=== PATIENT | male | born 1945 | race Caucasian/White ===

== ENCOUNTER 2017-07-08 03:02 | Emergency (ER) | payer MEDICARE, MEDICAID ==
[~2017-07-08] VITALS: Ht 175.3 cm; Wt 98.4 kg
--- NOTE | 2017-07-08 03:02 | NUR ---
to bed 3 bib c/o occipital scalp laceration s/p trip and fall. pt denies ko. pt aaox4 no acute distress noted, resp even and unlabored. pt aaox4 no acute distress noted, resp even and labored. pupils perrl, pt able to move all extremities well with bilateral equal picker packer. skin warm nondiaphoretic. er md at bedside to eval pt with orders received. will carry out orders.
--- NOTE | 2017-07-08 03:20 | NUR ---
PT TAKEN TO CT.
--- NOTE | 2017-07-08 03:33 | NUR ---
pt back from radiology. pending dt head result.
[2017-07-08] MEDS ORDERED: GELATIN SPONGE,ABSORBABLE 1 SPONGE SPONGE TP ONE ×2 (04:22→04:30)
--- NOTE | 2017-07-08 04:26 | NUR ---
er md at bedside for scalp laceration repair.
[2017-07-08] MEDS ORDERED: LIDOCAINE 0.5%-EPI 1:200,000 50 ML VIAL ONE (04:27)
[2017-07-08] MEDS ORDERED: LIDOCAINE 1%-EPI 1:100,000 50 ML VIAL IJ ONE (04:30)
--- NOTE | 2017-07-08 04:43 | NUR ---
scalp laceratio repair done. pt tolerated procedure well. pending disposition.
--- NOTE | 2017-07-08 04:44 | NUR ---
awaiting head ct result.
--- NOTE | 2017-07-08 05:04 | NUR ---
Patient discharged to home in stable condition. Written and verbal after care instructions given. Patient verbalizes understanding of instruction. pt at bedside to take pt home. pt aaox4 no acute distress noted, resp even and unlabored.
[2017-07-08 05:05] VITALS: BP 139/64
== END 2017-07-08 05:06 | disposition home or self-care (01) ==
LOC: ER 03:06
DX: S01.01XA Laceration without foreign body of scalp, initial encounter (principal); E11.22 Type 2 diabetes mellitus with diabetic chronic kidney disease; F32.9 Major depressive disorder, single episode, unspecified; G62.9 Polyneuropathy, unspecified; N18.6 End stage renal disease; Z79.82 Long term (current) use of aspirin; Z95.1 Presence of aortocoronary bypass graft; Z88.8 Allergy status to other drugs, medicaments and biological substances; Z88.1 Allergy status to other antibiotic agents; W18.30XA Fall on same level, unspecified, initial encounter; Y92.89 Other specified places as the place of occurrence of the external cause; Y93.89 Activity, other specified; Y99.8 Other external cause status
CPT/HCPCS: 70450-TC; A4606; A6402; J3490; Z7610

== ENCOUNTER 2018-07-19 23:17 | Emergency (ER) | payer MEDICARE, MEDICAID ==
[~2018-07-19] VITALS: Ht 172.7 cm; Wt 97.1 kg
[2018-07-19] MEDS ORDERED: IV NS 0.9% 500 ML BAG IV ONE (23:30)
--- NOTE | 2018-07-19 23:40 | NUR ---
18G IV TO R AC X 1 ATTEMPT USING ASEPTIC TECH, BLOOD HANDED OVER TO THE LAB AT BEDSIDE. IV FLUSHES EASILY WITH NS, NO S/S INFILTRATION NOTED AT THIS TIME.
--- NOTE | 2018-07-19 23:45 | NUR ---
PT BBRA FROM HOME C/C PER OD ON OXYCOTIN AND "MORE ALTERED THAN NORMAL". PT IS NOTED TO BE AAOX3. RESP EVEN AND UNLABORED. NO S/S OF ACUTE DISTRESS NOTED. PUPILS PINPOINT. 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 PT SAFETY AND COMFORT MEASURES IN PLACE. BEDSIDE BENJAMIN JORGE. PT'S BEDSIDE. WILL CONTINUE TO MONITOR PT
[2018-07-19 23:57] LABS: BASOPHILS % (AUTO) 0.5 % (0.0-2.0); EOSINOPHILS % (AUTO) 0.5 % (0.0-6.0); HEMATOCRIT 35 % (39-51); HEMOGLOBIN 11.1 g/dL (13.5-17.5); LYMPHOCYTES # (AUTO) 0.4 /CMM (0.8-4.8); LYMPHOCYTES % (AUTO) 6.6 % (20.0-44.0); MEAN CORPUSCULAR HGB CONC 32 g/dl (31.0-36.0); MEAN CORPUSCULAR VOLUME 94 fL (80-96); MONOCYTES # (AUTO) 0.5 /CMM (0.1-1.30); NEUTROPHILS # (AUTO) 5.6 /CMM (1.8-8.9); NEUTROPHILS % (AUTO) 85.4 % (43.0-81.0); PLATELET COUNT (AUTO) 249 /CMM (150-450); RED BLOOD CELL COUNT(AUTO) 3.69 MIL/uL (4.5-6.0); WHITE BLOOD COUNT (AUTO) 6.6 K/uL (4.3-11.0)
[2018-07-20 00:15] LABS: INR 1.1 (0.87-1.13)
[2018-07-20 00:16] LABS: ALANINE AMINOTRANSFERASE 15 U/L (12-78); ALBUMIN 2.6 g/dL (3.4-5.0); ALKALINE PHOSPHATASE 116 U/L (46-116); ASPARTATE AMINOTRANSFERASE 9 U/L (15-37); BILIRUBIN,DIRECT 0.3 mg/dL (0.0-0.2); BILIRUBIN,TOTAL 0.5 mg/dL (0.2-1.0); CALCIUM, SERUM 8.1 mg/dL (8.5-10.1); CARBON DIOXIDE 24 mmol/L (21-32); CHLORIDE 106 mmol/L (98-107); GLUCOSE 191 mg/dL (74-106); POTASSIUM 5.9 mmol/L (3.5-5.1); SODIUM SERUM 138 mmol/L (136-145); TOTAL PROTEIN, SERUM 5.8 g/dL (6.4-8.2)
[2018-07-20 00:17] LABS: TROPONIN I 0.091 ng/mL (0.00-0.056)
[2018-07-20 00:18] LABS: ALCOHOL, BLOOD < 3 mg/dL (0-0)
[2018-07-20 00:19] LABS: UREA NITROGEN, BLOOD 87 mg/dL (7-18)
[2018-07-20 00:20] LABS: SALICYLATE 2.9 mg/dL (2.8-20.0)
--- NOTE | 2018-07-20 01:23 | NUR ---
PMD ТАТЬЯНА RCUZ [phone] CALLED AND LEFT VOICEMAIL FOR CALL-BACK
[2018-07-20] MEDS ORDERED: IV NS 0.9% 1,000 ML BAG IV ONE (01:30)
--- NOTE | 2018-07-20 01:30 | NUR ---
PT PULLED IV OUT DURING CT PROCEDURE, IV removed. Catheter intact and site benign. Pressure and 4x4 applied to site. No bleeding noted. PER MD, NEW IV INSERTED IN LEFT FOREARM 20G.
--- NOTE | 2018-07-20 01:54 | NUR ---
CALLED [facility] AND STATES "DR. DORSEY WANTS A MS BED BUT I DONT HAVE ONE; SO PT CAN STAY HERE IN ER UNTIL WE HAVE THAT KIND OF BED". PT'S AND ER MD NOTFIED.
--- NOTE | 2018-07-20 02:34 | NUR ---
REPORT GIVEN TO RADHA ALONSO FOR [facility]
--- NOTE | 2018-07-20 03:52 | NUR ---
REPORT GIVEN TO EMS CREW FOR [facility] AND TRANSPORT. NO S/S OF DISTRESS UPON DISCHARGE
--- NOTE | 2018-07-20 03:55 | NUR ---
Patient Tranfers to outside Facility Physician:ROSE Location:[facility]
[2018-07-20 03:56] VITALS: BP 113/53
== END 2018-07-20 04:00 | disposition short-term general hospital (02) ==
LOC: ER 23:25
DX: I21.4 Non-ST elevation (NSTEMI) myocardial infarction (principal); S40.021A Contusion of right upper arm, initial encounter; N17.9 Acute kidney failure, unspecified; J90 Pleural effusion, not elsewhere classified; G93.49 Other encephalopathy; E87.5 Hyperkalemia; E11.42 Type 2 diabetes mellitus with diabetic polyneuropathy; E11.22 Type 2 diabetes mellitus with diabetic chronic kidney disease; N18.6 End stage renal disease; F32.9 Major depressive disorder, single episode, unspecified; I49.8 Other specified cardiac arrhythmias; R41.82 Altered mental status, unspecified; Z98.890 Other specified postprocedural states; Z88.1 Allergy status to other antibiotic agents; Z88.5 Allergy status to narcotic agent; Z95.1 Presence of aortocoronary bypass graft; Z94.0 Kidney transplant status; X58.XXXA Exposure to other specified factors, initial encounter; Y93.89 Activity, other specified; Y92.89 Other specified places as the place of occurrence of the external cause; Y99.8 Other external cause status
CPT/HCPCS: 36415; 71045; 73060; 80048; 80076; 80329; 82962; 84484; 85025; 85730; 93005; 96360; 99285; A4606; G0480 ×2; J7030; J7040; Z7610